=== PATIENT | male | born 1980 | race Caucasian/White ===

== ENCOUNTER 2018-02-07 22:46 | Emergency (ER) | payer BC ==
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
[2018-02-08 01:09] LABS: Amphetamine Screen,Urine Not Detected (NotDetected); Barbiturate Screen,Urine Not Detected (NotDetected); Benzodiazepines Screen,Urine Not Detected (NotDetected); Cocaine Screen,Urine Not Detected (NotDetected); Methadone Screen, Urine Not Detected (NotDetected); Opiate Screen,Urine Not Detected (NotDetected); Oxycodone Screen, Urine Not Detected (NotDetected); Phencyclidine Screen,Urine Not Detected (NotDetected); Tricyclic Antidepressant,Urine Not Detected (NotDetected); Urn Cannabinoid Scrn Not Detected (NotDetected)
[2018-02-08] MEDS ORDERED: DIPH,PERTUS(ACELL)TETVAC-LF 0.5 ML VIAL IM ONE (07:19)
[2018-02-08] MEDS ORDERED: LORazepam 2 MG/ML INJ IV STA (07:48)
[2018-02-08] MEDS ORDERED: ZIPRASIDONE 20 MG VIAL IM STA (07:48)
[2018-02-08 08:15] VITALS: BP 128/79; PULSE 89; RESP 20; TEMP 98.1
[2018-02-08 08:32] LABS: ALT 53 U/L (21-72); AST 46 U/L (17-59); Albumin 3.9 g/dL (3.5-5.0); Alkaline Phosphatase 76 U/L (38-126); Anion Gap 11 mmol/L; Blood Urea Nitrogen 9 mg/dL (9-20); Calcium 9.1 mg/dL (8.4-10.2); Carbon Dioxide 21 mmol/L (22-30); Chloride 107 mmol/L (98-107); Glucose 92 mg/dL (74-99); Sodium 139 mmol/L (137-145); Total Bilirubin 1.2 mg/dL (0.2-1.3); Total Protein 6.4 g/dL (6.3-8.2)
[2018-02-08 08:35] LABS: Basophils % (A) 0 %; Eosinophils % (A) 0 %; HCT 44.1 % (39.0-53.0); HGB 14.6 gm/dL (13.0-17.5); Lymphocytes # (A) 0.8 k/uL (1.0-4.8); Lymphocytes % (A) 7 %; MCH 31.2 pg (25.0-35.0); MCHC 33.1 g/dL (31.0-37.0); MCV 94.1 fL (80.0-100.0); Mean Platelet Volume 9.3; Monocytes # (A) 0.4 k/uL (0-1.0); Monocytes % (A) 3 %; Neutrophils # (A) 10.8 k/uL (1.3-7.7); Neutrophils % (A) 90 %; Platelet Count 156 k/uL (150-450); RBC 4.69 m/uL (4.30-5.90); RDW 12.8 % (11.5-15.5)
== END 2018-02-08 08:18 | disposition other institution (70) ==
LOC: EC 22:46
DX: T23.102A Burn of first degree of left hand, unspecified site, initial encounter (principal); T23.101A Burn of first degree of right hand, unspecified site, initial encounter; T25.129A Burn of first degree of unspecified foot, initial encounter; F29 Unspecified psychosis not due to a substance or known physiological condition; F17.200 Nicotine dependence, unspecified, uncomplicated; Z88.8 Allergy status to other drugs, medicaments and biological substances; X58.XXXA Exposure to other specified factors, initial encounter
CPT/HCPCS: 16000; 36415; 80053; 80306; 82075; 85025; 99285

== ENCOUNTER → 2023-08-23 | Outpatient (CLI) | payer BC ==
[2023-08-23 15:47] VITALS: BP 134/91; PULSE 78; RESP 16; TEMP 98.2
--- NOTE | 2023-08-23 16:33 | P.SLEEP ---
History of Present Illness H&P Date: 08/23/23 This is a 43-year-old male patient was referred to me for sleep apnea evaluation. The patient has been feeling fatigued. The patient also had issues with blepharospasms/droopy eyelids. He had seen an welding operator and the patient was given Botox injections around the eyes and he is getting somewhat better. 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 He works between 7:30 AM and 4:30 PM. Sometimes he works for longer hours. He goes to bed typically at around 10 PM and he wakes up 6:30 AM in the morning. He has a long history of bipolar disorder. Has had manic episodes in the past and during this episode the patient is unable to fall asleep and he stays awake for several days, and then he gets the typical manic phases where he is hyperstimulated and hyper excited and somewhat agitated. He is currently on a combination of treatment including lithium, Seroquel and Libalvi. While on this combination of drugs, the patient is able to generate and maintain sleep without any major difficulties. He is averaging around 7 to 8 hours of sleep. He wakes up tired and fatigued and he feels fatigued throughout the day. His current Bridport score is at 10. Weight is up by around 25 pounds over the past 1 year. No substance abuse. No alcoholism. No smoking. He is trying to regulate his sleep schedule and sleep hygiene measures. He used to play video games throughout the night and he go to bed late and he used to game he will 2 to 3 AM in the morning. This affected his mental health and his functionality during the day and currently he is not playing videogames in the late hours. Denies falling asleep on the job. Denies falling asleep while driving. No history of any motor vehicle accidents because of feeling drowsy or sleepy. He sleeps on his side. He is a mouth breather. He has a dry mouth in the morning. No history of any cardiovascular complications. Denies waking up choking or gasping for air. Occasionally wakes up in the middle of the night to urinate. No family history of obstructive sleep apnea. Review of Systems Constitutional: Reports daytime sleepiness, Reports fatigue, Reports weight gain Eyes: denies as per HPI, denies blurred vision, denies bulging eye, denies decreased vision, denies diplopia, denies discharge, denies dry eye, denies irritation, denies itching, denies pain, denies photophobia, denies loss of peripheral vision, denies loss of vision, denies tunnel vision/blind spots Ears: deny: decreased hearing, ear discharge, earache, tinnitus Ears, nose, mouth and throat: Reports as per HPI Breasts: absent: as per HPI, gynecomastia Cardiovascular: Reports as per HPI Respiratory: Reports snoring Gastrointestinal: Reports as per HPI Genitourinary: Reports as per HPI, Reports decreased libido Musculoskeletal: Reports as per HPI Musculoskeletal: absent: ankle pain, ankle stiffness, ankle swelling, as per HPI, elbow pain, elbow stiffness, elbow swelling, foot pain, foot stiffness, foot swelling, hand pain, hand stiffness, hand swelling, hip pain, hip stiffness, hip swelling, knee pain, knee stiffness, knee swelling, shoulder pain, shoulder stiffness, shoulder swelling, wrist pain, wrist stiffness, wrist swelling Integumentary: Reports as per HPI Neurological: Reports as per HPI Psychiatric: Reports as per HPI, Reports anxiety, Reports insomnia, Reports sleep disturbances Endocrine: Reports as per HPI, Reports fatigue Hematologic/Lymphatic: Reports as per HPI Allergic/Immunologic: Reports as per HPI Past Medical History Past Medical History: Asthma History of Any Multi-Drug Resistant Organisms: None Reported Past Surgical History: Adenoidectomy, Tonsillectomy Past Anesthesia/Blood Transfusion Reactions: No Reported Reaction Past Psychological History: No Psychological Hx Reported Smoking Status: Former smoker Past Alcohol Use History: Occasional Past Drug Use History: None Reported Medications and Allergies Home Medications Medication Instructions Recorded Confirmed Type Fluvanna Carbonate 1,200 mg PO DAILY 08/23/23 08/23/23 History Olanzapine/Samidorphan Malate 5 mg PO DAILY 08/23/23 08/23/23 History [Lybalvi 5-10 mg Tablet] QUEtiapine [SEROquel] 50 mg PO HS 08/23/23 08/23/23 History Allergies Allergy/AdvReac Type Severity Reaction Status Date / Time prednisone AdvReac Unknown Verified 02/07/18 23:20 Physical Exam Vitals: Vital Signs Temp Pulse Resp BP Pulse Ox 08/23/23 15:46 98.2 F 78 16 134/91 97 Intake and Output 07/16/24 07/16/24 07/16/24 06:59 14:59 22:59 Other: Weight 129.727 kg The patient appeared well nourished and normally developed. Vital signs as documented. Head exam is unremarkable. No scleral icterus or corneal arcus noted. Neck is without jugular venous distension, thyromegaly, or carotid bruits. The patient is a Mallampati class IV with significant crowding of posterior pharynx. Carotid upstrokes are brisk bilaterally. Lungs are clear to auscultation and percussion. Cardiac exam reveals the PMI to be normally sized and situated. Rhythm is regular. First and second heart sounds normal. No murmurs, rubs or gallops. Abdominal exam reveals normal bowel sounds, no masses, no organomegaly and no aortic enlargement. Extremities are nonedematous and both femoral and pedal pulses are normal. Examination of the skin revealed no evidence of significant rashes, suspicious appearing nevi or other concerning lesions. Neurologically, the patient is awake and alert and the patient does not have any focal neurological deficit. Cranial nerves are essentially intact. Assessment and Plan Plan: Chronic fatigue and sleepiness with an Bridport score of 10, consider possibility of obstructive sleep apnea. Chronic snoring Chronic insomnia related to bipolar disorder. The patient has had episodes of severe insomnia during his manic phase of bipolar disorder. Currently is well-regulated with a combination of lithium, Seroquel and Libalvi. The patient is able to generate around 7 hours of sleep while he is bipolar manic disorder is under adequate control. 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 Obesity with a BMI of 39.3 Mallampati class IV Hypotestosteronism and the patient is currently being supplemented with testosterone injections Plan Proceed with a screening polysomnography to evaluate this patient for obstructive sleep apnea. He is within the sleep center Continue same medications Encourage weight loss Will make further recommendations based on the results of sleep study. Sleep Note - Sleep Data ESS Total: 10 - Sleep Note Sleep Note: Temperature: 98.2 F Pulse Rate: 78 Respiratory Rate: 16 Blood Pressure: 134/91 SpO2: 97 Height: 5 ft 11.5 in Weight: 129.727 kg BMI: Neck Circumference: 17.5
== END ==
LOC: 3 N SLEEP 14:58
PROVIDERS: ATTEND Internal Medicine Critical Care Medicine
DX: R06.83 Snoring (principal); R53.82 Chronic fatigue, unspecified; F51.04 Psychophysiologic insomnia; F31.9 Bipolar disorder, unspecified; E66.9 Obesity, unspecified; E29.1 Testicular hypofunction; G24.5 Blepharospasm; F17.200 Nicotine dependence, unspecified, uncomplicated; Z68.38 Body mass index [BMI] 38.0-38.9, adult; Z88.8 Allergy status to other drugs, medicaments and biological substances
CPT/HCPCS: 99211

== ENCOUNTER 2023-12-25 00:49 | Inpatient (IN) | payer BC ==
[2023-12-25 01:57] LABS: ALT 63 U/L (4-49); AST 36 U/L (17-59); Acetaminophen <10.0 ug/mL; African American GFR (CKD) >90 (>60 ml/min/1.73 sqM); Albumin 4.2 g/dL (3.5-5.0); Alkaline Phosphatase 85 U/L (38-126); Anion Gap 9 mmol/L; Blood Urea Nitrogen 15 mg/dL (9-20); Calcium 8.9 mg/dL (8.4-10.2); Carbon Dioxide 19 mmol/L (22-30); Chloride 102 mmol/L (98-107); Glucose 129 mg/dL (74-99); Non-African American GFR(CKD) >90 (>60 ml/min/1.73 sqM); Potassium 3.3 mmol/L (3.5-5.1); Salicylate <1.0 mg/dL; Sodium 130 mmol/L (137-145); Total Bilirubin 0.7 mg/dL (0.2-1.3); Total Protein 6.7 g/dL (6.3-8.2)
[2023-12-25 02:36] LABS: Amphetamine Screen,Urine Not Detected (NotDetected); Barbiturate Screen,Urine Not Detected (NotDetected); Benzodiazepines Screen,Urine Not Detected (NotDetected); Cocaine Screen,Urine Not Detected (NotDetected); Methadone Screen, Urine Not Detected (NotDetected); Opiate Screen,Urine Not Detected (NotDetected); Oxycodone Screen, Urine Not Detected (NotDetected); Phencyclidine Screen,Urine Not Detected (NotDetected); Tricyclic Antidepressant,Urine Not Detected (NotDetected); Urn Cannabinoid Scrn Detected (NotDetected)
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
[2023-12-25] MEDS: POTASSIUM CHLORIDE ER 20 MEQ TAB.ER PO STA (03:34)
[2023-12-25] MEDS ORDERED: IBUPROFEN 600 MG TAB PO PRN (05:11)
[2023-12-25] MEDS ORDERED: ACETAMINOPHEN TAB 325 MG TAB PO PRN (05:11)
[2023-12-25] MEDS ORDERED: LORazepam 1 MG TAB PO PRN (05:11)
[2023-12-25] MEDS ORDERED: MAG HYDROX/AL HYDROX/SIMETH 355 ML BOTTLE PO PRN (05:11)
[2023-12-25] MEDS ORDERED: haloperidoL 5 MG TAB PO PRN (05:11)
[2023-12-25] MEDS ORDERED: HALOPERIDOL LACTATE 5 MG/ML 1 ML VIAL IM PRN (05:11)
[2023-12-25] MEDS ORDERED: LORazepam 2 MG/ML INJ IM PRN (05:14)
[2023-12-25 08:31] LABS: Basophils % (A) 0 %; Eosinophils # (A) 0.1 k/uL (0-0.7); Eosinophils % (A) 1 %; HGB 16.4 gm/dL (13.0-17.5); Lymphocytes # (A) 1.4 k/uL (1.0-4.8); Lymphocytes % (A) 9 %; MCH 31.6 pg (25.0-35.0); MCHC 34.1 g/dL (31.0-37.0); MCV 92.6 fL (80.0-100.0); Monocytes # (A) 0.8 k/uL (0-1.0); Monocytes % (A) 5 %; Neutrophils # (A) 13.1 k/uL (1.3-7.7); Neutrophils % (A) 84 %; Platelet Count 192 k/uL (150-450); RBC 5.19 m/uL (4.30-5.90); RDW 13.2 % (11.5-15.5); WBC 15.5 k/uL (3.8-10.6)
[2023-12-25] MEDS: NICOTINE 14MG/24HR PATCH TRANSDERM SCH (09:29)
[2023-12-25] MEDS: LITHIUM CARBONATE 300 MG CAP PO SCH (09:30)
[2023-12-25] MEDS: NICOTINE GUM (POLACRILEX) 2 MG GUM BUCCAL PRN (11:00)
[2023-12-25 12:43] LABS: Chol/HDL Ratio 4.28 Ratio; LDL Cholesterol,Calculated 116.7 mg/dL (0.0-131.0); VLDL Calculation 12.78 mg/dL (5.00-40.00)
--- NOTE | 2023-12-25 12:51 | P.HP ---
Psychiatric H&P - . History & Physical: Allergies Allergy/AdvReac Type Severity Reaction Status Date / Time prednisone Allergy Severe Unknown Verified 12/25/23 07:00 Vital Signs Temp 98.1 F 12/25/23 05:37 Pulse 100 12/25/23 05:37 Resp 18 12/25/23 05:37 BP 189/104 12/25/23 05:37 Pulse Ox 98 12/25/23 05:37 FiO2 Intake & Output 12/24/23 12/25/23 12/25/23 18:59 06:59 18:59 Weight 120.202 kg 112.6 kg Laboratory Last Values WBC 15.5 k/uL (3.8-10.6) H 12/25/23 07:54 RBC 5.19 m/uL (4.30-5.90) 12/25/23 07:54 Hgb 16.4 gm/dL (13.0-17.5) 12/25/23 07:54 Hct 48.0 % (39.0-53.0) 12/25/23 07:54 MCV 92.6 fL (80.0-100.0) 12/25/23 07:54 MCH 31.6 pg (25.0-35.0) 12/25/23 07:54 MCHC 34.1 g/dL (31.0-37.0) 12/25/23 07:54 RDW 13.2 % (11.5-15.5) 12/25/23 07:54 Plt Count 192 k/uL (150-450) 12/25/23 07:54 MPV 12.0 12/25/23 07:54 Neutrophils % 84 % 12/25/23 07:54 Lymphocytes % 9 % 12/25/23 07:54 Monocytes % 5 % 12/25/23 07:54 Eosinophils % 1 % 12/25/23 07:54 Basophils % 0 % 12/25/23 07:54 Neutrophils # 13.1 k/uL (1.3-7.7) H 12/25/23 07:54 Lymphocytes # 1.4 k/uL (1.0-4.8) 12/25/23 07:54 Monocytes # 0.8 k/uL (0-1.0) 12/25/23 07:54 Eosinophils # 0.1 k/uL (0-0.7) 12/25/23 07:54 Basophils # 0.0 k/uL (0-0.2) 12/25/23 07:54 Sodium 130 mmol/L (137-145) L 12/25/23 01:27 Potassium 3.3 mmol/L (3.5-5.1) L 12/25/23 01:27 Chloride 102 mmol/L (98-107) 12/25/23 01:27 Carbon Dioxide 19 mmol/L (22-30) L 12/25/23 01:27 Anion Gap 9 mmol/L 12/25/23 01:27 BUN 15 mg/dL (9-20) 12/25/23 01:27 Creatinine 0.65 mg/dL (0.66-1.25) L 12/25/23 01:27 Est GFR (CKD-EPI)AfAm >90 (>60 ml/min/1.73 sqM) 12/25/23 01:27 Est GFR (CKD-EPI)NonAf >90 (>60 ml/min/1.73 sqM) 12/25/23 01:27 Glucose 129 mg/dL (74-99) H 12/25/23 01:27 Calcium 8.9 mg/dL (8.4-10.2) 12/25/23 01:27 Total Bilirubin 0.7 mg/dL (0.2-1.3) 12/25/23 01:27 AST 36 U/L (17-59) 12/25/23 01:27 ALT 63 U/L (4-49) H 12/25/23 01:27 Alkaline Phosphatase 85 U/L (38-126) 12/25/23 01:27 Total Protein 6.7 g/dL (6.3-8.2) 12/25/23 01:27 Albumin 4.2 g/dL (3.5-5.0) 12/25/23 01:27 Triglycerides 63.90 mg/dL (0.00-149.00) 12/25/23 07:54 Cholesterol 169.00 mg/dL (0.00-200.00) 12/25/23 07:54 LDL Cholesterol, Calc 116.7 mg/dL (0.0-131.0) 12/25/23 07:54 VLDL Cholesterol, Calc 12.78 mg/dL (5.00-40.00) 12/25/23 07:54 HDL Cholesterol 39.50 mg/dL (40.00-60.00) L 12/25/23 07:54 Cholesterol/HDL Ratio 4.28 Ratio 12/25/23 07:54 TSH 5.000 mIU/L (0.465-4.680) H 12/25/23 07:54 Salicylates <1.0 mg/dL 12/25/23 01:27 Urine Opiates Screen Not Detected (NotDetected) 12/25/23 01:00 Ur Oxycodone Screen Not Detected (NotDetected) 12/25/23 01:00 Urine Methadone Screen Not Detected (NotDetected) 12/25/23 01:00 Acetaminophen <10.0 ug/mL 12/25/23 01:27 Ur Barbiturates Screen Not Detected (NotDetected) 12/25/23 01:00 U Tricyclic Antidepress Not Detected (NotDetected) 12/25/23 01:00 Ur Phencyclidine Scrn Not Detected (NotDetected) 12/25/23 01:00 Ur Amphetamines Screen Not Detected (NotDetected) 12/25/23 01:00 U Methamphetamines Scrn Not Detected (NotDetected) 12/25/23 01:00 U Benzodiazepines Scrn Not Detected (NotDetected) 12/25/23 01:00 [place] 1.0 mmol/L 12/25/23 01:27 Urine Cocaine Screen Not Detected (NotDetected) 12/25/23 01:00 U Marijuana (THC) Screen Detected (NotDetected) H 12/25/23 01:00 SARS-CoV-2 (PCR) Not Detected (Not Detectd) 12/25/23 03:23 12/25/23 12:45 IDENTIFYING DATA: Patient is a [id number] male who works for [employer] and lives in [place] HPI: Patient presented to the hospital on petition for driving 120 miles per hour and stating that he was allowing got to be in control of his vehicle. Per chart, patient states that he was driving at a high speed in order to scare away the demons. Patient was also tangential and had loose associations. During interview, patient made several grandiose statements. Patient states that he cracked the code of [employer], recorded everything on his phone, and then sold his phone. 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 States that he has been able to [place] demons. He also states that his has been preventing him. When asked the reason for the bedding, patient could not respond. Per nursing staff, patient has been hyper christian. Patient denies any suicidal or homicidal ideations intent or plan. At this time patient denies any auditory or visual hallucinations. PAST PSYCHIATRIC HISTORY: has a long history of bipolar disorder with multiple admissions for [facility], he has had severe manic episodes that has led him to burning himselfin being admitted to a burn unit, currently on lithium which is prescribed at 1200 mg daily but patient takes 1500 mg daily, also on Seroquel 200 mg daily at bedtime PMH:[denies] ALLERGIES: as per EMR CHEMICAL DEPENDENCY HISTORY: UDS positive for marijuana, could not assess other substance use because patient was very tangential FAMILY PSYCHIATRIC/SUBSTANCE USE HISTORY: could not assess because patient was very tangential SOCIAL HISTORY: no legal issues,lives in [place], works for [employer] MENTAL STATUS EXAM: General Appearance: Patient appears to be older than stated age is alert, [directable, and attempts to cooperate]. Behavior: cooperative Speech: Patient's speech is [fluent and nonpressured.] Mood/Affect: Patient reports their mood is [depressed], affect is labile as he easily gets agitated at times Suicidality/Homicidality: Patient denies having any homicidal ideation intent or plan. [Denies any suicidal ideations intent or plan] Perceptions: Patient denies any visual hallucinations [and denies any auditory hallucinations] Though content/process: multiple delusions present including grandiose delusions Memory and concentration: AOX3, grossly intact for the purposes of this session. Can spell "WORLD" backwards Judgment and insight: [poor] STRENGTHS/WEAKNESSES: strength is that patient is [resilient]. Weakness is that patient [has poor judgment and is impulsive] INTELLECT: [average] IMPRESSIONS: bipolar disorder, currently manic Cannabis use disorder PLAN: -Patient has [not] signed [adult voluntary form. [A second certification was completed and along with petition will be filed for court.] -Medications : increase lithium to 1800 mg daily, continue Seroquel 200 mg daily at bedtime -Ativan [and Haldol] PRN for agitation/aggression -Patient was informed of the risks, benefits and side effects of the medication and patient verbally consented to taking the medications. -Internal Medicine consult to perform medical evaluation and physical. -SW on board for discharge planning. Encourage patient to participate in groups to work on coping skills. [Will await deferral and court date.] []
[2023-12-25 14:49] LABS: ALT 81 U/L (10-49); AST 42 U/L (14-35); Alkaline Phosphatase 116 U/L (41-126); Blood Urea Nitrogen 11.4 mg/dL (9.0-27.0); Calcium 9.9 mg/dL (8.7-10.3); Carbon Dioxide 18.3 mmol/L (21.6-31.8); Chloride 104 mmol/L (96-109); Glucose 104 mg/dL (70-110); Potassium 4.1 mmol/L (3.5-5.5); Sodium 139 mmol/L (135-145); Total Bilirubin 0.7 mg/dL (0.3-1.2); Total Protein 7.6 g/dL (6.2-8.2)
[2023-12-25] MEDS: QUEtiapine 200 MG TAB PO SCH (21:08)
--- NOTE | 2023-12-26 04:08 | P.PN ---
Progress Note - Text Progress Note Date: 12/26/23 Attempted to see the patient in the MHU on 12/24 at 2200. Informed by the RN that the patient is currently inappropriate for evaluation and is actively psychotic.
[2023-12-26] MEDS: LITHIUM CARBONATE 300 MG CAP PO SCH (08:23)
[2023-12-26] MEDS ORDERED: LORazepam 1 MG TAB PO PRN ×2 (11:50→11:55)
--- NOTE | 2023-12-26 12:07 | P.PN ---
Progress Note - Text Progress Note Date: 12/26/23 Interval History: Patient was seen today and agreeable to speak to specifications writer in the office. Patient had an irritable tone, was demanding aggressive with specifications writer during interview. He redirected several questions back at specifications writer. He explained briefly about why the police picked him up. He claims that "because I want to go fast". States that he was driving 113 mph. He claims that he had a very fast car and "I would challenge anybody to come after me". He states that the police could not keep up with him. He claims that his mood is "great" he did have a poor frustration tolerance. He claims that he has been diagnosed with bipolar in the past. He was fairly demanding about different things on the unit. Denies any suicidal homicidal ideations intent or plan. Denies any auditory or visual hallucinations. He refused to speak about other medications and claims that he will be refusing them. MENTAL STATUS EXAM: General Appearance: Patient appears to be older well-built, than stated age is alert, [directable, irritable and argumentative at times Behavior: Irritable, argumentative. Demanding Speech: Patient's speech is fluent and nonpressured. Irritable tone Mood/Affect: Patient reports their mood is "fine", affect is labile as he easily gets agitated at times Suicidality/Homicidality: Patient denies having any homicidal ideation intent or plan. Denies any suicidal ideations intent or plan Perceptions: Patient denies any visual hallucinations and denies any auditory hallucinations Though content/process: multiple delusions present including grandiose delusions, demanding, minimizing his need for hospitalization Memory and concentration: AOX3, grossly intact for the purposes of this session Judgment and insight: Poor/impulsive IMPRESSIONS: bipolar disorder, currently manic Cannabis use disorder PLAN: -Patient has not signed adult voluntary form. A second certification was completed and along with petition will be filed for court. -Medications : Continue with lithium 1800 mg daily for mood stabilization, continue Seroquel 200 mg daily at bedtime for mood stabilization/insomnia. Added Abilify 5 mg daily for mood stabilization, plan to transition patient onto long-acting injection to help ensure compliance. If patient is still not improving with this medication then consider Invega versus first generation antipsychotics for severe aggression and bipolar disorder. -Ativan and Haldol PRN for agitation/aggression -SW on board for discharge planning. Encourage patient to participate in groups to work on coping skills. Will await deferral and court date.
[2023-12-26] MEDS: ARIPiprazole 5 MG TAB PO SCH (13:03)
[2023-12-26] MEDS: ARIPiprazole 10 MG TAB PO SCH (13:04)
[2023-12-26] MEDS: ARIPiprazole 2 MG TAB PO ONE (13:12)
[2023-12-27] MEDS: ARIPiprazole 10 MG TAB PO SCH (10:07)
--- NOTE | 2023-12-27 11:14 | P.PN ---
Progress Note - Text Progress Note Date: 12/27/23 Interval History: Patient was seen today and agreeable to speak to magazine writer in the office. patient does present calmer today and more cooperatrive, less argumentative. Patient claims that he has been taking the medications, not reporting any side effects at this time. States that he slept fairly last night about 8 or 9 hours. He claims that he would like to listen to music while on the unit. He spoke more about the court process and also long-acting injection, he states that he is open to doing that. That his appetite is improving. Denies any suicidal homicidal ideations intent or plan. Denies any auditory or visual hallucinations. MENTAL STATUS EXAM: General Appearance: Patient appears to be older well-built, than stated age is alert, [directable, less irritable today, attempts to cooperate Behavior: Cooperative today Speech: Patient's speech is fluent and nonpressured. Mood/Affect: Patient reports their mood is "fine", affect is improving and congruent Suicidality/Homicidality: Patient denies having any homicidal ideation intent or plan. Denies any suicidal ideations intent or plan Perceptions: Patient denies any visual hallucinations and denies any auditory hallucinations Though content/process: Less delusional today, less grandiosity, more logical goal oriented Memory and concentration: AOX3, grossly intact for the purposes of this session Judgment and insight: Poor/impulsive, improving mildly IMPRESSIONS: bipolar disorder, currently manic Cannabis use disorder PLAN: -Patient has not signed adult voluntary form. A second certification was completed and along with petition will be filed for court. -Medications : Decrease lithium 1200 mg daily for mood stabilization, continue Seroquel 200 mg daily at bedtime for mood stabilization/insomnia. continue Abilify 10 mg daily for mood stabilization, plan to transition patient onto long-acting injection to help ensure compliance likely tomorrow -will check lithium level tomorrow am -Ativan and Haldol PRN for agitation/aggression -SW on board for discharge planning. Encourage patient to participate in groups to work on coping skills. Will await deferral and court date. likely discharge either vs tuesday after he recieves LINK.
--- NOTE | 2023-12-28 10:22 | P.PN ---
Progress Note - Text Progress Note Date: 12/28/23 Interval History: Patient was seen today and agreeable to speak to program writer in the office. Patient was taking part in group earlier today. He states that he is doing fairly well. He appears to be much calmer today, more cooperative today with program writer. We spoke more about the long-acting injection he is agreeable to take it today. He has several questions about his medications which were answered. He claims that he had a difficult time sleeping last night due to an overhead announcement in the middle of the night. States that his appetite is fair, appears to be more future oriented today, judgment and insight are improving mildly. Not reporting any side effects at this time. Denies any suicidal homicidal ideations intent or plan. Denies any auditory or visual hallucinations. MENTAL STATUS EXAM: General Appearance: Patient appears to be older well-built, than stated age is alert, [directable, attempts to cooperate Behavior: Cooperative today Speech: Patient's speech is fluent and nonpressured. Mood/Affect: Patient reports their mood is "fine", affect is improving and co ngruent improving Suicidality/Homicidality: Patient denies having any homicidal ideation intent or plan. Denies any suicidal ideations intent or plan Perceptions: Patient denies any visual hallucinations and denies any auditory hallucinations Though content/process: more logical goal oriented not endorsing any delusions or paranoia. Memory and concentration: AOX3, grossly intact for the purposes of this session Judgment and insight: Poor/impulsive, improving mildly IMPRESSIONS: bipolar disorder, currently manic Cannabis use disorder PLAN: -Patient has not signed adult voluntary form. A second certification was completed and along with petition will be filed for court. -Medications : lithium 1200 mg daily for mood stabilization, continue Seroquel 200 mg daily at bedtime for mood stabilization/insomnia. continue Abilify 10 mg daily for mood stabilization, plan to give Abilify Maintena 400 mg IM on 12/27, next dose will be doing q. 1 month on 01/24 -Awaiting lithium level -Ativan and Haldol PRN for agitation/aggression - on board for discharge planning. Encourage patient to participate in groups to work on coping skills. Will await deferral and court date. likely discharge tuesday after he recieves LINK.
[2023-12-28] MEDS: ARIPiprazole IM SYRINGE 400 MG (NO CHARGE) PHARMACY STOCK IM SCH (11:51)
[2023-12-28] MEDS: LITHIUM CARBONATE 300 MG CAP PO SCH (13:30)
[2023-12-28] MEDS: QUEtiapine 100 MG TAB PO SCH (20:01)
--- NOTE | 2023-12-29 11:33 | P.PN ---
Progress Note - Text Progress Note Date: 12/29/23 Interval History: Patient was seen today and agreeable to speak to film writer in the office. Patient was taking part in group earlier today. He recieved the injection yesterday and tolerated it well, no complaints. he appears to be more cooperative, more future oriented. He states that he is doing fairly well today. He appears to be much calmer. He claims that he had a difficult time sleeping last night due to an overhead announcement and also not having a fan and music playing in his room. He was agreeable to try trazodone as needed. States that his appetite is fair, judgment and insight are improving mildly. Not reporting any side effects at this time. Denies any suicidal homicidal ideations intent or plan. Denies any auditory or visual hallucinations. MENTAL STATUS EXAM: General Appearance: Patient appears to be older well-built, than stated age is alert, [directable, attempts to cooperate, improving Behavior: Cooperative today Speech: Patient's speech is fluent and nonpressured. Mood/Affect: Patient reports their mood is "ok", affect is improving and congruent improving Suicidality/Homicidality: Patient denies having any homicidal ideation intent or plan. Denies any suicidal ideations intent or plan Perceptions: Patient denies any visual hallucinations and denies any auditory hallucinations Though content/process: more logical goal oriented not endorsing any delusions or paranoia. Memory and concentration: AOX3, grossly intact for the purposes of this session Judgment and insight: improving mildly IMPRESSIONS: bipolar disorder, currently manic Cannabis use disorder PLAN: -Patient has not signed adult voluntary form. A second certification was comple luis and along with petition will be filed for court. -Medications : lithium 1200 mg daily for mood stabilization, continue Seroquel 200 mg daily at bedtime for mood stabilization/insomnia. continue Abilify 10 mg daily for mood stabilization, received Abilify Maintena 400 mg IM on 12/27, next dose will be doing q. 1 month on 01/24 -Ativan and Haldol PRN for agitation/aggression -SW on board for discharge planning. Encourage patient to participate in groups to work on coping skills. patient deferred with his finance attorney. likely discharge tuesday
[2023-12-30] MEDS: traZODone HCL 100 MG TAB PO PRN (00:30)
--- NOTE | 2023-12-30 10:28 | P.PN ---
Progress Note - Text Progress Note Date: 12/30/23 Interval History: Patient was seen today and agreeable to speak to flex o writer operator in the office. Patient was speaking in group earlier today. He appears to be a bit more confrontational today with flex o writer operator. He handed flex o writer operator a letter, which was describing some of his experiences here on the unit and fairly religiously preoccupying. 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 He claims that he is not allowed back at his 's house at this time. He appears to be somewhat intrusive today and pushing for discharge, has poor insight and judgment. He claims that he had a difficult time sleeping agian last night due to an overhead announcement and bl;evin flex o writer operator for it and states that "you have to fix this stuff youre in charge". States that his appetite is fair, judgment and insight are improving mildly. Not reporting any side effects at this time. Denies any suicidal homicidal ideations intent or plan. Denies any auditory or visual hallucinations. MENTAL STATUS EXAM: General Appearance: Patient appears to be older well-built, than stated age is alert, [directable, attempts to cooperate, improving Behavior: More demanding today, intrusive Speech: Patient's speech is fluent and nonpressured. Mood/Affect: Patient reports their mood is "ok", affect is improving and incongruent improving Suicidality/Homicidality: Patient denies having any homicidal ideation intent or plan. Denies any suicidal ideations intent or plan Perceptions: Patient denies any visual hallucinations and denies any auditory hallucinations Though content/process: Patient today is more grandiose, demanding, illogical. Memory and concentration: AOX3, grossly intact for the purposes of this session Judgment and insight: Poor IMPRESSIONS: bipolar disorder, currently manic Cannabis use disorder PLAN: -Patient has not signed adult voluntary form. A second certification was completed and along with petition will be filed for court. -Medications : lithium 1200 mg daily for mood stabilization, increase Seroquel 400 mg daily at bedtime for mood stabilization/insomnia. continue Abilify 10 mg daily for mood stabilization, received Abilify Maintena 400 mg IM on 12/27, next dose will be doing q. 1 month on 01/24. added depakote 500 mg qhs for mood stabilization. -Ativan and Haldol PRN for agitation/aggression -SW on board for discharge planning. Encourage patient to participate in groups to work on coping skills. patient deferred with his civil rights attorney. hopeful for discharge early next week if patient is improving psychiatrically.
[2023-12-30] MEDS: LORazepam 0.5 MG TAB PO PRN (11:13)
--- NOTE | 2023-12-30 19:59 | P.PN ---
Progress Note - Text Progress Note Date: 12/28/23 Attempted to see the patient in the MHU on 12/27 at 2100. The patient refused to be seen or evaluated.
[2023-12-30] MEDS: DIVALPROEX ER 500 MG TAB.ER.24H PO SCH (20:57)
[2023-12-30] MEDS: QUEtiapine 400 MG TAB PO SCH (20:57)
[2023-12-31] MEDS: MAGNESIUM HYDROXIDE 2,400 MG/30 ML CUP PO PRN (11:30)
--- NOTE | 2023-12-31 13:07 | P.PN ---
Progress Note - Text Progress Note Date: 12/31/23 Interval history: Patient was seen in the [facility] [place] and was directable and agreeable to speak with screenplay writer. He shared two drawings he created on the chalk board, a star and a whale. When asked about the significance of these he went on to share a story about being a protector of others and related themes of keeping watch and being there for others. He describes his mood as "irritated" today though the reason for his frustration was not particularly clear. He felt his sleep is good and appetite are stable. He does think he's improving overall. At this time patient denies any suicidal or homicidal ideations intent or plan. Denies any auditory or visual hallucinations. Patient denies any side effects from the medications and has been compliant with meds. Mental status exam: General Appearance: Patient appears to be stated age is alert, directable, and cooperative. Wearing a shirt tied around his shoulders. Behavior: No agitated behavior. Patient is calm and directable Speech: Patient's speech is fluent and nonpressured. Talkative. Mood/Affect: Mood is "irritated", affect is incongruent and generally euthymic. Suicidality/Homicidality: Patient denies having any suicidal or homicidal ideation intent or plan. Perceptions: Patient denies any auditory or visual hallucinations. Though content/process: There is no evidence of grossly delusional thought content and thought process is linear and goal-directed. Some grandiosity. Memory and concentration: AOX3, grossly intact for the purposes of this session Judgment and insight: Impaired Assessment/Plan: Continue with current diagnoses: Bipolar Disorder, currently manic and cannabis use disorder Patient continues to meet criteria for inpatient psychiatric admission for symptom stabilization and safety. Patient will be maintained on current psychotropic medication regimen: [place] 1200 mg daily for mood stabilization, Seroquel 400 mg at bedtime, Abilify 10 mg daily for mood stabilization, and Depakote 500 mg at bedtime. Received Abilify Maintena 400 mg IM on 12/27; next dose on 01/24. Monitor for medication compliance and for any psychotropic medication side effects. Will continue to monitor ongoing response to treatment. Encouraged participation in milieu.
[2023-12-31 13:11] LABS: Appearance,Urine Clear (Clear); Bilirubin,Urine Negative (Negative); Blood,Urine Negative (Negative); Color,Urine Colorless; Glucose,Urine (UA) Negative (Negative); Ketones,Urine Negative (Negative); Leukocyte Esterase,Urine Negative (Negative); Nitrite,Urine Negative (Negative); PH, Urine 7.5 (5.0-8.0); Protein,Urine Negative (Negative); Specific Gravity,Urine 1.008 (1.001-1.035); Urobilinogen,Urine <2.0 mg/dL (<2.0)
[2023-12-31] MEDS: NICOTINE GUM (POLACRILEX) 2 MG GUM BUCCAL PRN (13:43)
--- NOTE | 2024-01-01 12:10 | P.PN ---
Progress Note - Text Interval history: Patient was seen in the hallway and was directable and agreeable to speak with scenario writer in the office. He described his mood as previously "fine" but not irritable after witnessing another patient's interaction with the care team in the hallway. 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 He reports having slept well last night. He does feel he's in a "fog" which he attributes to "too much medicine." He shared that he has been working with his outpatient team for many years and feels comfortable with the regimen they prescribed. 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 He is still very bothered by what he witnessed and frustrated about his job not having engaged him in any post-event processing as he was the first person on the scene. He lamented having to be evaluated for "fitness for duty" in order to return to his position. He did share some grandiose ideas about his work and plans to investigate all the wrongdoing he's ever witnessed. At this time patient denies any suicidal or homicidal ideations intent or plan. Denies any auditory or visual hallucinations. Patient has been compliant with meds. Mental status exam: General Appearance: Patient appears to be stated age is alert, directable, and cooperative. Behavior: Patient is calm and directable. No psychomotor agitation or retardation. Speech: Patient's speech is fluent and nonpressured. Talkative. Mood/Affect: Mood is irritable though was previously "fine", affect is congruent, constricted. Suicidality/Homicidality: Patient denies having any suicidal or homicidal ideation intent or plan. Perceptions: Patient denies any auditory or visual hallucinations. Though content/process: There is no evidence of grossly delusional thought content and thought process is tangential and circumstantial. Some grandiosity. Memory and concentration: AOX3, grossly intact for the purposes of this session Judgment and insight: Impaired Assessment/Plan: Continue with current diagnoses: Bipolar Disorder, currently manic and cannabis use disorder Patient continues to meet criteria for inpatient psychiatric admission for symptom stabilization and safety. Patient will be maintained on current psychotropic medication regimen: [place] 1200 mg daily for mood stabilization, Seroquel 400 mg at bedtime, Abilify 10 mg daily for mood stabilization, and Depakote 500 mg at bedtime. Received Abilify Maintena 400 mg IM on 12/27; next dose on 01/24. Monitor for medication compliance and for any psychotropic medication side effects. Will continue to monitor ongoing response to treatment. Encouraged participation in milieu.
[2024-01-02 07:02] VITALS: RESP 16; TEMP 98
--- NOTE | 2024-01-02 11:41 | P.PN ---
Progress Note - Text Progress Note Date: 01/02/24 Interval History: Patient was seen today and agreeable to speak to engineering technical writer. Patient states that he has been going to most groups on the unit. States that he is not having any side effects on the medications. He claims that he has been taking all his medications, doing better overall. States that he knows that he is not allowed back at his 's house and will likely be going to the retirement. He claims that he may have a friend that he can stay with who he will call. He was not religiously preoccupied today, did claim that he does have strong papi in God that will help him however. Is not endorsing any delusions or paranoia today, appeared to be much calmer with engineering technical writer today during conversation more reality focused. That he is easily eating all his meals. Claims that he is sleeping a bit better last night claims about 6 hours. judgment and insight are improving mildly. Not reporting any side effects at this time. Denies any suicidal homicidal ideations intent or plan. Denies any auditory or visual hallucinations. MENTAL STATUS EXAM: General Appearance: Patient appears to be older well-built, than stated age is alert, [directable, attempts to cooperate, improving Behavior: More appropriate calmer and cooperative Speech: Patient's speech is fluent and Not pressured Mood/Affect: Patient reports their mood is "fine", affect is improving and congruent improving Suicidality/Homicidality: Patient denies having any homicidal ideation intent or plan. Denies any suicidal ideations intent or plan Perceptions: Patient denies any visual hallucinations and denies any auditory hallucinations Though content/process: Patient today is more goal oriented, logical, not endorsing any paranoia or delusions. Not religiously preoccupied. Memory and concentration: AOX3, grossly intact for the purposes of this session Judgment and insight: improving mildly IMPRESSIONS: bipolar disorder, currently manic Cannabis use disorder PLAN: -Patient has not signed adult voluntary form. A second certification was completed and along with petition will be filed for court. -Medications : lithium 1200 mg daily for mood stabilization, Seroquel 400 mg daily at bedtime for mood stabilization/insomnia. continue Abilify 10 mg PO daily for mood stabilization with last dose on 01/10, received Abilify Maintena 400 mg IM on 12/27, next dose will be doing q. 1 month on 01/24. increase depakote 750 mg qhs for mood stabilization. -Ativan and Haldol PRN for agitation/aggression -SW on board for discharge planning. Encourage patient to participate in groups to work on coping skills. patient deferred with his city attorney. hopeful for discharge tomorrow if he continues to improve psychiatrically. Patient's and friend claimed that they do not want him staying with them, patient will likely be referred to retirement tomorrow
[2024-01-02] MEDS: DIVALPROEX ER 250 MG TAB.ER.24H PO SCH (21:00)
[2024-01-03] MEDS: ARIPiprazole 10 MG TAB PO SCH (08:21)
[2024-01-03 08:26] VITALS: BP 125/86; PULSE 94
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
[2024-01-03 11:06] LABS: Lithium 0.6 mmol/L
[2024-01-03 11:14] LABS: Valproic Acid (Depakene) 39.4 ug/mL
== END 2024-01-03 12:26 | disposition home or self-care (01) | DRG 885 ==
LOC: EC 00:49 → 3MHU 05:07
PROVIDERS: ADMIT Psychiatry & Neurology Psychiatry; ATTEND Psychiatry & Neurology Psychiatry
DX: F31.2 Bipolar disorder, current episode manic severe with psychotic features (principal); F12.10 Cannabis abuse, uncomplicated; F41.9 Anxiety disorder, unspecified; G47.00 Insomnia, unspecified; J45.909 Unspecified asthma, uncomplicated; Z88.8 Allergy status to other drugs, medicaments and biological substances; Z65.3 Problems related to other legal circumstances; Z87.891 Personal history of nicotine dependence
CPT/HCPCS: 36415; 80053; 80061; 80143; 80164; 80178; 80179; 80306; 81003; 82075; 83036; 84443; 85025; 87635; 93005; 99285

== ENCOUNTER → 2024-07-18 | Outpatient (CLI) | payer BC ==
--- NOTE | 2024-07-18 12:32 | XR ---
EXAMINATION TYPE: XR ribs RT w pa chest xray DATE OF EXAM: 07/18/2024 12:17 PM COMPARISON: None CLINICAL INDICATION: Male, 44 years old with history of [id number] PLEURODYNIA,CHEST PAIN; YCH, pain TECHNIQUE: XR ribs RT w pa chest xray; Frontal and oblique views of the ribs with frontal chest radio graph. FINDINGS: The ribs have a normal appearance. No evidence of fracture. Overall, the lungs are clear. The cardiac silhouette is normal in size. The remaining osseous structures are intact. IMPRESSION: No acute osseous pathology. [facility], , 07/18/2024 12:29 PM
== END | disposition home or self-care (01) ==
LOC: RADXRYALE 12:05
PROVIDERS: ATTEND Physician Assistant
DX: R07.81 Pleurodynia (principal); R07.89 Other chest pain